=== PATIENT | male | born 1995 | race Caucasian/White ===

== ENCOUNTER 2018-01-12 05:50 | Emergency (ER) | payer OTHER ==
[~2018-01-12] VITALS: Ht 182.9 cm; Wt 94.3 kg
[2018-01-12 06:04] VITALS: BP 126/60
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
== END 2018-01-12 08:17 | disposition home or self-care (01) ==
LOC: ER 05:50 → EEVIPCON 05:50 → ER 08:17
DX: S01.511A Laceration without foreign body of lip, initial encounter (principal); S05.11XA Contusion of eyeball and orbital tissues, right eye, initial encounter; S10.91XA Abrasion of unspecified part of neck, initial encounter; H11.32 Conjunctival hemorrhage, left eye; M25.512 Pain in left shoulder; Y08.09XA Assault by strike by other specified type of sport equipment, initial encounter; Y93.89 Activity, other specified; Y92.89 Other specified places as the place of occurrence of the external cause; Y99.8 Other external cause status
CPT/HCPCS: 70450; 70486; 72125; 73030; 99284-25